=== PATIENT | male | born 1985 | race Caucasian/White ===

== ENCOUNTER 2019-04-21 07:30 | Emergency (ER) | payer MEDICAID, OTHER ==
[~2019-04-21] VITALS: Ht 175.3 cm; Wt 77.1 kg
[~2019-04-21 07:30] MED LIST: HYDR-4226 PO; SULF1TAB35 PO
--- NOTE | 2019-04-21 07:49 | ED Lower Extremity ---
General Chief Complaint: Lower Extremity Stated Complaint: LT ANKLE INJ Source: patient Exam Limitations: no limitations History of Present Illness Date Seen by Provider: Apr 21, 2019 Time Seen by Provider: 07:37 Initial Comments Patient presents to ER by private conveyance with his and chief complaint that yesterday afternoon he stepped out of a vehicle inverted his left foot hurt a popping sensation and was unable to bear weight immediately. He went home and iced his foot drank some beer and is went to sleep. This morning he still can't walk on his having significant swelling. He has not taken any Tylenol or ibuprofen. No previous history of significant injury or surgery to his left ankle. No significant medical history. Allergies and Home Medications Allergies Coded Allergies: No Known Drug Allergies (Unverified , 04/21/19) Patient Home Medication List Home Medication List Reviewed: Yes Review of Systems Constitutional: No chills, No diaphoresis EENTM: No ear discharge, No ear pain Respiratory: No cough, No short of breath Cardiovascular: No chest pain, No edema Gastrointestinal: No abdominal pain, No nausea Past Zfhmtnw-Sdlaob-[place] Hx Patient Social History Alcohol Use: Regular Use Alcohol Beverage of Choice: Beer Recreational Drug Use: No Smoking Status: Current Everyday Smoker Type Used: Cigarettes (1-2 ppd) Physical Exam Vital Signs Vital Signs - First Documented 04/21/19 07:38 Temp 98.0 Pulse 79 Resp 18 B/P (MAP) 113/65 (81) Pulse Ox 98 O2 Delivery Room Air Capillary Refill : Height, Weight, BMI Height: '" Weight: lbs. oz. kg; BMI Method: General Appearance: WD/WN, no apparent distress HEENT: PERRL/EOMI, pharynx normal Cardiovascular: normal peripheral pulses (bilateral dorsal pedal pulses and pos terior tibial pulses palpable 2 out of 4.), regular rate, rhythm Respiratory: no respiratory distress, no accessory muscle use Ankles: right ankle non-tender, right ankle normal inspection, right ankle normal range of motion, right ankle no evidence of injury; left ankle bone tenderness (bimalleolar), left ankle joint effusion, left ankle limited range of motion (secondary to pain), left ankle pain, left ankle soft tissue tenderness, left ankle swelling (moderate) Feet: bilateral foot non-tender, bilateral foot normal inspection, bilateral foot normal range of motion, bilateral foot no evidence of injury Neurologic/Tendon: normal sensation, normal motor functions, normal tendon functions, responds to pain Neurologic/Psychiatric: no motor/sensory deficits, alert, oriented x 3 Skin: normal color, warm/dry Progress/Results/Core Measures Results/Orders My Orders Orders - KESHAWN JUNIOR Ankle 3 View Left (04/21/19 07:42) Vital Signs/I&O 04/21/19 07:38 Temp 98.0 Pulse 79 Resp 18 B/P (MAP) 113/65 (81) Pulse Ox 98 O2 Delivery Room Air Progress Progress Note : Time: 07:46 Progress Note He has declined any NSAIDs at this time. He says it doesn't hurt as long as he does not put weight on it. We'll offer an ice pack and per [employer] ankle rules get a 3 view left ankle. Diagnostic Imaging Diagonstic Imaging: Xray Plain Films/CT/US/NM/MRI: ankle (L) Comments No acute osseous fracture seen. Joint spaces are maintained. Reviewed: Reviewed by Me Departure Impression Primary Impression: Sprain of ankle Disposition: 01 HOME, SELF-CARE Condition: Stable Departure-Patient Inst. Decision time for Depature: 08:00 Referrals: PEGGY BRAR MD (PCP/Family) Primary Care Physician Patient Instructions: Ankle Sprain (DC) Add. Discharge Instructions: Rest the ankle when not necessary to be on it. Apply ice for 20 minutes every 2 hours for the next 2-3 days. Elevate the ankle above the level of your heart to help reduce the swelling and therefore pain. Wear some kind of a compression wrap such as a neoprene sleeve or Jack bandage. You can use ibuprofen 800 mg every 8 hours or 2 Naprosyn/Aleve twice a day for the same effect. Tylenol 1000 mg every 8 hours as also recommended as needed for pain. Use the crutches to stay off your foot. Wear the air splint for the next 1-2 weeks as necessary for support. All discharge instructions reviewed with patient and/or family. Voiced understanding. Work/School Note: Work Release Form Date Seen in the Emergency Department: Apr 21, 2019 Return to Work: Apr 25, 2019 Restrictions: Need Release from Doctor Other Restrictions Listed Below: Minimal weightbearing left foot. Use crutches and splint until 04/28/19. KESHAWN JUNIOR Apr 21, 2019 07:48
--- NOTE | 2019-04-21 08:07 | Diagnostic Imaging Report ---
INDICATION: Left ankle pain. FINDINGS: 3 views of left ankle show soft tissue swelling adjacent to the lateral malleolus. There is no acute fracture or dislocation. IMPRESSION: Soft tissue swelling. No fracture is seen. Dictated by: Dictated on workstation # [id number]
[2019-04-21 08:30] VITALS: BP 111/65
== END 2019-04-21 08:30 | disposition home or self-care (01) ==
LOC: ER FS 07:32
DX: S93.402A Sprain of unspecified ligament of left ankle, initial encounter (principal); F17.210 Nicotine dependence, cigarettes, uncomplicated; X50.1XXA Overexertion from prolonged static or awkward postures, initial encounter
CPT/HCPCS: 73610

== ENCOUNTER 2020-10-20 17:50 | Emergency (ER) | payer MEDICAID, OTHER ==
[~2020-10-20] VITALS: Ht 177 cm; Wt 81.6 kg
--- NOTE | 2020-10-20 17:59 | ED Chest Pain ---
General Stated Complaint: CHEST PAIN Source: patient Exam Limitations: no limitations History of Present Illness Date Seen by Provider: Oct 20, 2020 Time Seen by Provider: 18:00 Initial Comments 34-year-old male presents with chest pain which has been present off-and-on for the past 24 hours. Denies history of heart or lung problem, however does have extensive family history on both mother and father side of heart attacks before the age of 40. 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 He does smoke 2 packs of cigarettes daily. Denies any recent illness, fever or chills or cough. Denies any abdominal pain, back pain, extremity swelling. Allergies and Home Medications Allergies Coded Allergies: No Known Drug Allergies (Unverified , 04/21/19) Home Medications Hydrocodone/Acetaminophen 1 Each Tablet, 1 EACH PO Q6H PRN for PAIN Do not fill unless Bactrim is also filled Prescribed by: DUYEN BOX on 11/13/152207 Sulfamethoxazole/Trimethoprim 1 Each Tablet, 1 EACH PO BID Prescribed by: DUYEN BOX on 11/13/152207 Patient Home Medication List Home Medication List Reviewed: Yes Review of Systems Review of Systems Constitutional: see HPI; No dizziness, No fever, No malaise, No weakness EENTM: No Symptoms Reported Respiratory: Denies Cough, Denies Shortness of Air Cardiovascular: Chest Pain; Denies Edema, Denies Palpitations, Denies Syncope Gastrointestinal: Denies Abdominal Pain, Denies Constipated, Denies Diarrhea, Denies Nausea, Denies Poor Appetite, Denies Vomiting Musculoskeletal: No back pain, No joint pain Skin: No change in color, No rash Psychiatric/Neurological: Denies Headache, Denies Numbness, Denies Paresthesia Past Oxmgwvk-Cxocla-Aykudd Hx Past Med/Social Hx: Reviewed Nursing Past Med/Soc Hx Patient Social History Alcohol Beverage of Choice: Beer Smoking Status: Current Everyday Smoker Type Used: Cigarettes 2nd Hand Smoke Exposure: Yes Recent Hopitalizations: No Seasonal Allergies Seasonal Allergies: No Past Medical History Surgeries: No Respiratory: No Cardiac: No Neurological: No Reproductive Disorders: No Genitourinary: No Gastrointestinal: No Musculoskeletal: No Endocrine: No HEENT: No Cancer: No Psychosocial: No Integumentary: No Blood Disorders: No Physical Exam Vital Signs Vital Signs - First Documented 10/20/20 18:04 Temp 36.1 Pulse 65 Resp 17 B/P (MAP) 123/69 (87) Pulse Ox 99 O2 Delivery Room Air Capillary Refill : Height, Weight, BMI Height: 5'9.00" Weight: 170lbs. 0oz. 77.844292iz; BMI Method:Stated General Appearance: No Apparent Distress, WD/WN HEENT: PERRL/EOMI, Normal ENT Inspection Neck: Full Range of Motion, Non Tender, Supple Respiratory: Chest Non Tender, Lungs Clear, Normal Breath Sounds, No Accessory Muscle Use, No Respiratory Distress Cardiovascular: Regular Rate, Rhythm, No Edema, No Gallop, Normal Peripheral Pulses Gastrointestinal: Non Tender, Soft; No Distended, No Guarding Extremity: Normal Inspection, Non Tender, No Calf Tenderness Neurologic/Psychiatric: Alert, Oriented x3, No Motor/Sensory Deficits, Normal Mood/Affect Skin: Normal Color, Warm/Dry Progress/Results/Core Measures Results/Orders Lab Results Laboratory Tests Test 10/20/20 18:02 Range/Units White Blood Count 9.5 4.3-11.0 10^3/uL Red Blood Count 4.95 4.35-5.85 10^6/uL Hemoglobin 15.2 13.3-17.7 G/DL Hematocrit 45 40-54 % Mean Corpuscular Volume 90 80-99 FL Mean Corpuscular Hemoglobin 31 25-34 PG Mean Corpuscular Hemoglobin Concent 34 32-36 G/DL Red Cell Distribution Width 13.1 10.0-14.5 % Platelet Count 227 130-400 10^3/uL Mean Platelet Volume 11.4 H 7.4-10.4 FL Immature Granulocyte % (Auto) 0 % Neutrophils (%) (Auto) 50 42-75 % Lymphocytes (%) (Auto) 38 12-44 % Monocytes (%) (Auto) 7 0-12 % Eosinophils (%) (Auto) 4 0-10 % Basophils (%) (Auto) 1 0-10 % Neutrophils # (Auto) 4.7 1.8-7.8 X 10^3 Lymphocytes # (Auto) 3.6 1.0-4.0 X 10^3 Monocytes # (Auto) 0.6 0.0-1.0 X 10^3 Eosinophils # (Auto) 0.4 H 0.0-0.3 10^3/uL Basophils # (Auto) 0.1 0.0-0.1 10^3/uL Immature Granulocyte # (Auto) 0.0 0.0-0.1 10^3/uL Sodium Level 139 135-145 MMOL/L Potassium Level 4.0 3.6-5.0 MMOL/L Chloride Level 101 98-107 MMOL/L Carbon Dioxide Level 27 21-32 MMOL/L Anion Gap 11 5-14 MMOL/L Blood Urea Nitrogen 12 7-18 MG/DL Creatinine 1.01 0.60-1.30 MG/DL Estimat Glomerular Filtration Rate > 60 BUN/Creatinine Ratio 12 Glucose Level 108 H 70-105 MG/DL Calcium Level 9.4 8.5-10.1 MG/DL Corrected Calcium 9.1 8.5-10.1 MG/DL Total Bilirubin < 0.2 0.1-1.0 MG/DL Aspartate Amino Transf (AST/SGOT) 20 5-34 U/L Alanine Aminotransferase (ALT/SGPT) 28 0-55 U/L Alkaline Phosphatase 57 40-136 U/L Troponin I < 0.30 <0.30 NG/ML Total Protein 7.0 6.4-8.2 GM/DL Albumin 4.4 3.2-4.5 GM/DL My Orders Orders - ROVENSTINEARMEN DO Ed Iv/Invasive Line Start (10/20/20 17:57) Chest 1 View Ap/Pa Only (10/20/20 17:57) Ekg Tracing (10/20/20 17:57) Cbc With Automated Diff (10/20/20 17:57) Comprehensive Metabolic Panel (10/20/20 17:57) Troponin I Fs (10/20/20 17:57) Aspirin Chewable Tablet (Baby Aspirin Ch (10/20/20 18:15) Medications Given in ED Current Medications Medications Dose Ordered Sig/Blu Route Start Time Stop Time Status Last Admin Dose Admin Aspirin 324 mg ONCE ONCE PO 10/20/20 18:15 10/20/20 18:16 DC 10/20/20 18:14 324 MG Vital Signs/I&O 10/20/20 10/20/20 18:04 18:04 Temp 36.1 Pulse 65 Resp 17 B/P (MAP) 123/69 (87) Pulse Ox 99 O2 Delivery Room Air Initial ECG Impression Date: Oct 20, 2020 Initial ECG Impression Time: 17:58 Initial ECG Rate: 60 Initial ECG Rhythm: Normal Sinus Initial ECG Intervals: Normal Initial ECG Impression: Normal Diagnostic Imaging Diagonstic Imaging: Xray Plain Films/CT/US/NM/MRI: chest Comments INDICATION: Chest pain COMPARISON: None FINDINGS: Single frontal view of the chest demonstrates normal heart size and pulmonary vascularity. The lungs are well aerated and clear. No large pleural effusion or pneumothorax is seen. The visualized osseous structures show no acute abnormalities. IMPRESSION: 1. No acute cardiopulmonary process. Dictated on workstation # [id number] Dict: 10/20/202 Trans: 10/20/20 1825 [facility] [id number] Interpreted by: NILDA SHARP MD Electronically signed by: Departure Impression Primary Impression: Chest pain Qualified Codes: R07.9 - Chest pain, unspecified Disposition: HOME, SELF-CARE Condition: Stable Departure-Patient Inst. Decision time for Depature: 18:40 Referrals: PEGGY BRAR MD (PCP/Family) Primary Care Physician Milagro BEEBE MD Patient Instructions: Chest Pain (DC) Add. Discharge Instructions: Call Dr Beebe's office on Thursday to schedule a stress EKG. They will make an appointment for you and give you instructions in preparation for the study. Scripts Aspirin (Aspirin EC) 81 Mg Tablet. 81 MG PO DAILY, #30 TAB Prov: ARMEN MACHADO DO 10/20/20 ARMEN MACHADO DO Oct 20, 2020 17:59
[2020-10-20 18:10] LABS: WHITE BLOOD COUNT 9.5 10^3/uL (4.3-11.0)
[2020-10-20 18:11] LABS: BASOPHILS % (AUTO) 1 % (0-10); EOSINOPHILS % (AUTO) 4 % (0-10); HEMATOCRIT 45 % (40-54); HEMOGLOBIN 15.2 G/DL (13.3-17.7); LYMPHOCYTES % (AUTO) 38 % (12-44); MEAN CORPUSCULAR HEMOGLOBIN 31 PG (25-34); MEAN CORPUSCULAR HGB CONC 34 G/DL (32-36); MEAN CORPUSCULAR VOLUME 90 FL (80-99); MEAN PLATELET VOLUME 11.4 FL (7.4-10.4); MONOCYTES % (AUTO) 7 % (0-12); NEUTROPHILS # (AUTO) 4.7 X 10^3 (1.8-7.8); NEUTROPHILS % (AUTO) 50 % (42-75); PLATELET COUNT 227 10^3/uL (130-400)
[2020-10-20 18:12] LABS: BASOPHILS # (AUTO) 0.1 10^3/uL (0.0-0.1); EOSINOPHILS # (AUTO) 0.4 10^3/uL (0.0-0.3); LYMPHOCYTES # (AUTO) 3.6 X 10^3 (1.0-4.0); MONOCYTES # (AUTO) 0.6 X 10^3 (0.0-1.0)
[2020-10-20] MEDS ORDERED: ASPIRIN 81 MG CHEW (CHILDREN'S ASA) PO ONE (18:15)
--- NOTE | 2020-10-20 18:26 | Diagnostic Imaging Report ---
INDICATION: Chest pain COMPARISON: None FINDINGS: Single frontal view of the chest demonstrates normal heart size and pulmonary vascularity. The lungs are well aerated and clear. No large pleural effusion or pneumothorax is seen. The visualized osseous structures show no acute abnormalities. IMPRESSION: 1. No acute cardiopulmonary process. Dictated by: Dictated on workstation # [id number]
[2020-10-20 18:32] LABS: CARBON DIOXIDE 27 MMOL/L (21-32); CHLORIDE 101 MMOL/L (98-107); SODIUM 139 MMOL/L (135-145)
[2020-10-20 18:33] LABS: ALANINE AMINOTRANSFERASE 28 U/L (0-55); ALKALINE PHOSPHATASE 57 U/L (40-136); BILIRUBIN,TOTAL < 0.2 MG/DL (0.1-1.0); BUN/CREATININE RATIO 12; CALCIUM 9.4 MG/DL (8.5-10.1); CREATININE SERUM 1.01 MG/DL (0.60-1.30); GFR ESTIMATED > 60; GLUCOSE 108 MG/DL (70-105)
[2020-10-20 18:34] LABS: ALBUMIN 4.4 GM/DL (3.2-4.5)
[2020-10-20] MEDS ORDERED: ASPI-1238 PO (18:41)
[2020-10-20 18:46] VITALS: BP 109/70
== END 2020-10-20 18:47 | disposition home or self-care (01) ==
LOC: EDUNIT# 17:50 → ER FS 17:53
DX: R07.9 Chest pain, unspecified (principal); F17.210 Nicotine dependence, cigarettes, uncomplicated
CPT/HCPCS: 36415; 71045; 80053; 84484; 85025; 93005

== ENCOUNTER 2022-06-18 11:41 | Emergency (ER) | payer OTHER ==
[~2022-06-18] VITALS: Ht 177.8 cm; Wt 81.6 kg
[~2022-06-18 11:41] MED LIST changes: +ASPI-1238 PO; -SULF1TAB35 PO; +SULF1TAB38 PO
[2022-06-18 12:30] VITALS: BP 125/80
--- NOTE | 2022-06-18 12:42 | ED EENT ---
History of Present Illness General Chief Complaint: Oral/Throat Problems Stated Complaint: SORE THROAT/SWELLING Source: patient Exam Limitations: no limitations History of Present Illness Date Seen by Provider: Jun 18, 2022 Time Seen by Provider: 12:39 Initial Comments Patient is a 36-year-old male who presents ED with throat pain, throat swelling. Symptoms started yesterday. Noted some redness and swelling to the back part of his throat. He states he is able to eat and drink but reports difficulty and pain. States he is tolerating secretions. Denies of any neck swelling, shortness of breath or cough. Reports marijuana use without other drug use. Denies fever, vomiting, diarrhea, headache, dizziness. Denies taking medication at home. History of strep throat when he was younger Allergies and Home Medications Allergies Coded Allergies: No Known Drug Allergies (Unverified , 04/21/19) Patient Home Medication List Home Medication List Reviewed: Yes Aspirin (Aspirin EC) 81 Mg Tablet.dr, 81 MG PO DAILY Prescribed by: ARMEN MACHADO on 10/20/20 184 Hydrocodone/Acetaminophen (Hydrocodone/Acetaminophen 5 MG/325 MG TAB) 1 Each Tablet, 1 EACH PO Q6H PRN for PAIN Prescribed by: DUYEN BOX on 11/13/152207 Sulfamethoxazole/Trimethoprim (Bactrim Ds Tablet) 1 Each Tablet, 1 EACH PO BID Prescribed by: DUYEN BOX on 11/13/152207 Review of Systems Review of Systems Constitutional: No chills, No diaphoresis, No malaise, No weakness Eyes: Denies Blurred Vision, Denies Decreased Acuity Ears: Denies Dizziness, Denies Pain Nose: denies clots, denies congestion, denies bloody discharge, denies clear discharge, denies previous injury Mouth: denies clots Throat: pain, swelling; denies neck stiffness; painful swallowing; denies difficulty with fluids Respiratory: No cough, No dyspnea on exertion Cardiovascular: No chest pain Gastrointestinal: No abdominal pain, No diarrhea, No nausea, No vomiting Musculoskeletal: No joint pain Skin: No change in color, No change in hair/nails All Other Systems Reviewed Negative Unless Noted: Yes Past Pmkwpiz-Ptjhtr-Fqftbn Hx Seasonal Allergies Seasonal Allergies: No Past Medical History Surgeries: Yes Orthopedic Respiratory: No Cardiac: No Neurological: No Reproductive Disorders: No Genitourinary: No Gastrointestinal: No Musculoskeletal: No Endocrine: No HEENT: No Cancer: No Psychosocial: No Integumentary: No Blood Disorders: No Physical Exam Vital Signs Vital Signs - First Documented 06/18/22 12:30 Temp 37.1 Pulse 78 Resp 18 B/P (MAP) 125/80 (95) Pulse Ox 99 O2 Delivery Room Air Height, Weight, BMI Height: 5'9.00" Weight: 170lbs. 0oz. 77.744301xd; 26.00 BMI Method:Stated General Appearance: WD/WN, no apparent distress Eyes: bilateral eye normal inspection, bilateral eye PERRL, bilateral eye EOMI Ears: bilateral ear auricle normal, bilateral ear canal normal, bilateral ear TM normal Nose: normal inspection Mouth/Throat: other (Oropharynx with erythema, swelling. No uvula deviation suggesting tonsillar abscess. Bilateral submandibular lymphadenopathy. No stridor. 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, no motor/sensory deficits, alert, normal mood/affect, oriented x 3 Skin: normal color, warm/dry Progress/Results/Core Measures Results/Orders Lab Results Laboratory Tests Test 06/18/22 12:38 Range/Units Group A Streptococcus Screen POSITIVE H NEGATIVE My Orders Orders - SANTOS MARTINEZ Rapid Strep A Screen (06/18/22 12:01) Dexamethasone Oral Soln (Ed) (Decadron I (06/18/22 12:38) Ibuprofen Tablet (Motrin Tablet) (06/18/22 12:45) Penicillin G Benzathine Inject (Bicillin (06/18/22 13:15) Medications Given in ED Current Medications Medications Dose Ordered Sig/Blu Route Start Time Stop Time Status Last Admin Dose Admin Ibuprofen 800 mg ONCE ONCE PO 06/18/22 12:45 06/18/22 12:46 DC 06/18/22 13:03 800 MG Vital Signs/I&O 06/18/22 12:30 Temp 37.1 Pulse 78 Resp 18 B/P (MAP) 125/80 (95) Pulse Ox 99 O2 Delivery Room Air Departure Communication (PCP) Patient with strep pharyngitis. Tolerating secretions. No stridor. No evidence of uvula deviation suggesting tonsillar abscess. Patient was requesting IM penicillin which was provided 1 dose. Was given oral Decadron and ibuprofen. Discussed anti-inflammatories, cool fluids, ice cream to help with pain. Discussed cephcol and Chloraseptic spray to help with sore throat. If any worsening symptoms return back to ED for further evaluation. Impression Primary Impression: Strep pharyngitis Disposition: HOME, SELF-CARE Condition: Stable Departure-Patient Inst. Decision time for Depature: 13:08 Referrals: [facility] [place] [facility],LOCAL PHYSICIAN (PCP) Primary Care Physician Patient Instructions: Strep Throat ED Add. Discharge Instructions: Recommend cepahcol drops or Chloraseptic spray to help with pain. Recommend eating something cool or cold to help with the pain. If any worsening symptoms such as unable to tolerate secretions to return back to ED. continue with Tylenol ibuprofen at home All discharge instructions reviewed with patient and/or family. Voiced understanding. Work/School Note: Work Release Form Date Seen in the Emergency Department: Jun 18, 2022 Return to Work: Jun 21, 2022 SANTOS MARTINEZ Jun 18, 2022 12:42
[2022-06-18] MEDS ORDERED: IBUPROFEN 800 MG (MOTRIN) TAB PO ONE (12:45)
[2022-06-18] MEDS ORDERED: PEN G BENZ (BICILLIN LA) 1.2 M UN/2 ML SYR IM ONE (13:15)
== END 2022-06-18 13:16 | disposition home or self-care (01) ==
LOC: EDUNIT# 11:41 → ER 11:44
DX: J02.0 Streptococcal pharyngitis (principal); Z28.310 Unvaccinated for COVID-19
CPT/HCPCS: 87430; 99284

== ENCOUNTER 2022-09-06 17:21 | Emergency (ER) | payer OTHER ==
[~2022-09-06] VITALS: Ht 177.8 cm; Wt 79.4 kg
[2022-09-06 17:27] VITALS: BP 118/64
--- NOTE | 2022-09-06 17:28 | ED Back Pain ---
General Chief Complaint: Back Problems Stated Complaint: MAXINE FLANK PAIN History of Present Illness Date Seen by Provider: Sep 06, 2022 Time Seen by Provider: 17:28 Initial Comments 36-year-old male is here with complaints of dysuria, frequency of urination, urgency, bilateral flank pain for the past 1 week, which has been worsening. Patient states he drinks water but has not been drinking much over the past couple of days. Denies fever, nausea and vomiting, diarrhea, abdominal pain. Patient states that the pain is a dull aching pain that is constant. Allergies and Home Medications Allergies Coded Allergies: No Known Drug Allergies (Unverified , 04/21/19) Patient Home Medication List Home Medication List Reviewed: Yes Aspirin (Aspirin EC) 81 Mg Tablet., 81 MG PO DAILY Prescribed by: ARMEN MACHADO on 10/20/201840 Hydrocodone/Acetaminophen (Hydrocodone/Acetaminophen 5 MG/325 MG TAB) 1 Each Tablet, 1 EACH PO Q6H PRN for PAIN Prescribed by: DUYEN BOX on 11/13/152207 Sulfamethoxazole/Trimethoprim (Bactrim Ds Tablet) 1 Each Tablet, 1 EACH PO BID Prescribed by: DUYEN BOX on 11/13/152207 Review of Systems Constitutional: no symptoms reported EENTM: no symptoms reported Respiratory: no symptoms reported Cardiovascular: no symptoms reported Gastrointestinal: no symptoms reported, see HPI Genitourinary: dysuria, frequency Musculoskeletal: no symptoms reported Skin: no symptoms reported Psychiatric/Neurological: No Symptoms Reported Past Evvdrug-Rbfcnq-Qojzvh Hx Immunizations Up To Date First/Initial COVID19 Vaccinat: DECLINED Seasonal Allergies Seasonal Allergies: No Past Medical History Surgeries: Yes Orthopedic Respiratory: No Cardiac: No Neurological: No Reproductive Disorders: No Genitourinary: No Gastrointestinal: No Musculoskeletal: No Endocrine: No HEENT: No Cancer: No Psychosocial: No Integumentary: No Blood Disorders: No Physical Exam Vital Signs Vital Signs - First Documented 09/06/22 17:27 Temp 37.0 Pulse 83 Resp 16 B/P (MAP) 118/64 (82) Pulse Ox 96 O2 Delivery Room Air Capillary Refill : Height, Weight, BMI Height: 5'9.00" Weight: 170lbs. 0oz. 77.950826vo; 25.00 BMI Method:Stated General Appearance: No Apparent Distress, WD/WN HEENT: PERRL/EOMI Neck: Full Range of Motion Cardiovascular: Regular Rate, Rhythm Respiratory: Lungs Clear Gastrointestinal: Normal Bowel Sounds, Non Tender, Soft Back: Normal Inspection, CVA Tenderness (L), CVA Tenderness (R) Extremity: Normal Range of Motion Neurologic/Psychiatric: Alert, Oriented x3 Skin: Normal Color Progress/Results/Core Measures Results/Orders Lab Results Laboratory Tests Test 09/06/22 17:45 Range/Units Urine Color YELLOW Urine Clarity CLOUDY Urine pH 8.0 5-9 Urine Specific [place] 1.020 1.016-1.022 Urine Protein 2+ H NEGATIVE Urine Glucose (UA) NEGATIVE NEGATIVE Urine Ketones NEGATIVE NEGATIVE Urine Nitrite NEGATIVE NEGATIVE Urine Bilirubin NEGATIVE NEGATIVE Urine Urobilinogen 1.0 < = 1.0 MG/DL Urine Leukocyte Esterase 2+ H NEGATIVE Urine RBC (Auto) 3+ H NEGATIVE Urine RBC >100 H /HPF Urine WBC >100 H /HPF Urine Crystals NONE /LPF Urine Bacteria LARGE H /HPF Urine Casts NONE /LPF Urine Mucus NEGATIVE /LPF Urine Culture Indicated YES My Orders Orders - RAUL MAURO MD Ua Culture If Indicated (09/06/22 17:42) Urine Culture (09/06/22 17:45) Ceftriaxone (Rocephin) (09/06/22 18:45) Lidocaine 1% Inj 20 Ml (Xylocaine 1% Inj (09/06/22 18:45) Medications Given in ED Current Medications Medications Dose Ordered Sig/Blu Route Start Time Stop Time Status Last Admin Dose Admin Ceftriaxone Sodium 1,000 mg ONCE ONCE IM 09/06/22 18:45 09/06/22 18:46 DC 09/06/22 18:49 1,000 MG Lidocaine HCl 2.1 ml ONCE ONCE INJ 09/06/22 18:45 09/06/22 18:46 DC 09/06/22 18:49 2.1 ML Vital Signs/I&O 09/06/22 17:27 Temp 37.0 Pulse 83 Resp 16 B/P (MAP) 118/64 (82) Pulse Ox 96 O2 Delivery Room Air Progress Progress Note : Progress Note 1. ACUTE PYELONEPHRITIS: - UA is positive for LE, WBC, RBC, bacteria - Ceftriaxone 1gm im STAT - Toradol 30mg im STAT - Prescription for Cefpodoxime 100mg bid for 14 days - Adequate hydration advised - Follow up with PCP in 7 to 10 days -The patient was seen in the ED, and treated appropriately to presentation at a specific point in time. Patient is informed that there is a possibility that disease and illness can evolve and change in acuity rapidly or slowly after patient is discharged from the ER. Precautionary advice given to the patient for immediate return to ER if symptoms worsen or do not resolve, and to seek emergency care sooner rather than later. Pt also advised on the importance of PC P follow up and compliance with management and follow up plan with PCP and/or specialist, as this is part of the management plan. Pt verbally expressed understanding. Departure Impression Primary Impression: Acute pyelonephritis Disposition: HOME, SELF-CARE Condition: Stable Departure-Patient Inst. Referrals: NO,LOCAL PHYSICIAN (PCP/Family) Primary Care Physician Add. Discharge Instructions: - Prescription for Cefpodoxime 100mg bid for 14 days - Adequate hydration advised - Follow up with PCP in 7 to 10 days All discharge instructions reviewed with patient and/or family. Voiced understanding. Scripts Cefpodoxime Proxetil (Cefpodoxime Proxetil) 100 Mg Tablet 100 MG PO BID for 14 Days, #28 TAB Prov: RAUL MAURO MD 09/06/22 RAUL MAURO MD Sep 06, 2022 17:28
[2022-09-06 17:52] LABS: BILIRUBIN,URINE NEGATIVE (NEGATIVE); COLOR,URINE YELLOW; GLUCOSE, URINE (UA) NEGATIVE (NEGATIVE); KETONES,URINE NEGATIVE (NEGATIVE); LEUKOCYTE ESTERASE ,URINE 2+ (NEGATIVE); NITRITE,URINE NEGATIVE (NEGATIVE); PROTEIN,URINE 2+ (NEGATIVE)
[2022-09-06 17:53] LABS: CLARITY,URINE CLOUDY
[2022-09-06 17:56] LABS: BACTERIA,URINE LARGE /HPF; RBC,URINE >100 /HPF; WBC,URINE >100 /HPF
[2022-09-06] MEDS ORDERED: LIDOCAINE 1% INJ 20 ML VIAL INJ ONE (18:45)
[2022-09-06] MEDS ORDERED: cefTRIAXone 1,000 MG VIAL IM ONE (18:45)
[2022-09-06] MEDS ORDERED: CEFP100T2 PO (19:00)
[2022-09-06] MEDS ORDERED: KETOROLAC 30 MG/ML VIAL IVP ONE (19:00)
== END 2022-09-06 19:12 | disposition home or self-care (01) ==
LOC: EDUNIT# 17:21 → ER FS 17:22
DX: N10 Acute pyelonephritis (principal); Z28.310 Unvaccinated for COVID-19
CPT/HCPCS: 81000; 87077; 87088; 87186; 99284

== ENCOUNTER 2022-11-18 15:53 | Emergency (ER) | payer SELFPAY ==
[~2022-11-18] VITALS: Ht 177 cm; Wt 90.0 kg
[~2022-11-18 15:53] MED LIST changes: +CEFP100T2 PO
[2022-11-18 16:10] VITALS: BP 119/74
[2022-11-18 16:27] LABS: BILIRUBIN,URINE NEGATIVE (NEGATIVE); CLARITY,URINE CLOUDY; COLOR,URINE YELLOW; GLUCOSE, URINE (UA) NEGATIVE (NEGATIVE); KETONES,URINE TRACE (NEGATIVE); LEUKOCYTE ESTERASE ,URINE 2+ (NEGATIVE); NITRITE,URINE POSITIVE (NEGATIVE); PH,URINE 6.5 (5-9); PROTEIN,URINE 2+ (NEGATIVE)
[2022-11-18] MEDS ORDERED: cefTRIAXone 250 MG/2.5 ML ML IM ONE (16:30)
[2022-11-18] MEDS ORDERED: AZITHROMYCIN 250 MG TAB (ZITHROMAX) PO ONE (16:30)
[2022-11-18 16:34] LABS: BACTERIA,URINE LARGE /HPF; RBC,URINE 25-50 /HPF; WBC,URINE >100 /HPF
--- NOTE | 2022-11-18 16:36 | ED GU-Female ---
General Chief Complaint: - Reproductive Stated Complaint: UTI SYMPTOMS Nursing Triage Note: Patient has presented to ER with cc of pain with urination, urinary frequency and urgency for the last 3 days. He reports that about 6 weeks ago he had a UTI and he tool some of the antibiotics but lost the bottle and didn't finish his antibiotics. He also states that he has recently had a new sexual partner. He is concnered about have a reoccurent UTI. Source: patient Exam Limitations: no limitations History of Present Illness Date Seen by Provider: Nov 18, 2022 Time Seen by Provider: 16:00 Initial Comments Patient is is a 36-year-old male who presents with urinary frequency urgency and dysuria. He denies testicular pain tenderness swelling or redness. No penile discharge. He has had symptoms for the past 3 days. Patient was seen here 6 weeks ago diagnosed with urinary tract infection. He did not complete his full course of antibiotics. Patient is circumcised, nondiabetic and has recently acquired new sexual partners. He is concerned about possible STD exposure. Timing/Duration: just prior to arrival, other Severity/Quality: other Location: other Radiation: other Activities at Onset: other Sexual [place] History: other Modifying Factors: Improves With Other Associated Symptoms: other Allergies and Home Medications Allergies Coded Allergies: No Known Drug Allergies (Unverified , 04/21/19) Patient Home Medication List Home Medication List Reviewed: Yes Aspirin (Aspirin EC) 81 Mg Tablet.dr, 81 MG PO DAILY Prescribed by: ARMEN MACHADO on 10/20/20 184 Cefpodoxime Proxetil (Cefpodoxime Proxetil) 100 Mg Tablet, 100 MG PO BID Prescribed by: RAUL MAURO MD on 09/06/22 190 Hydrocodone/Acetaminophen (Hydrocodone/Acetaminophen 5 MG/325 MG TAB) 1 Each Tablet, 1 EACH PO Q6H PRN for PAIN Prescribed by: DUYEN BOX on 11/13/152207 Sulfamethoxazole/Trimethoprim (Bactrim Ds Tablet) 1 Each Tablet, 1 EACH PO BID Prescribed by: DUYEN BOX on 11/13/152207 Review of Systems Review of Systems Constitutional: see HPI EENTM: see HPI Respiratory: see HPI Cardiovascular: see HPI Gastrointestinal: see HPI Genitourinary: see HPI Musculoskeletal: see HPI Skin: see HPI Endocrine: See HPI Hematologic/Lymphatic: See HPI All Other Systemes Reviewed Negative Unless Noted: No Past [id number]-[id number] Hx Patient Social History Tobacco Use?: Yes Tobacco type used: Cigarettes Smoking Status: Current Everyday Smoker Substance use?: Yes Substance type: Marijuana Substance frequency: Several times a month Alcohol Use?: Yes Alcohol type: Hard Liquor Alcohol Frequency: Several times a month Immunizations Up To Date First/Initial COVID19 Vaccinat: DECLINED Second COVID19 Vaccination Gareth: DECLINED Third COVID19 Vaccination Date: DECLINED Seasonal Allergies Seasonal Allergies: No Past Medical History Surgeries: Yes Orthopedic Respiratory: No Cardiac: No Neurological: No Reproductive Disorders: No Genitourinary: No Gastrointestinal: No Musculoskeletal: No Endocrine: No HEENT: No Cancer: No Psychosocial: No Integumentary: No Blood Disorders: No Physical Exam Vital Signs Vital Signs - First Documented 11/18/22 16:10 Temp 36.8 Pulse 93 B/P (MAP) 119/74 (89) Pulse Ox 97 O2 Delivery Room Air Capillary Refill : Height, Weight, BMI Height: 5'9.00" Weight: 170lbs. 0oz. [id number]; 28.00 BMI Method:Stated General Appearance: WD/WN HEENT: PERRL/EOMI Cardiovascular: regular rate, rhythm Respiratory: lungs clear Neurologic/Psychiatric: no motor/sensory deficits, alert, oriented x 3 Skin: normal color Focused Exam Sepsis Stage: Ruled Out Progress/Results/Core Measures Suspected Sepsis SIRS Temperature: Pulse: 93 Respiratory Rate: Blood Pressure 119 /74 Mean: 89 Results/Orders Lab Results Laboratory Tests Test 11/18/22 16:00 Range/Units My Orders Orders - GLORIA DINERO DO Ua Culture If Indicated (11/18/22 16:12) Neis Fernando Dna Urine Test (11/18/22 16:12) Chlamydia Trachomatis Urine (11/18/22 16:12) Ceftriaxone (Rocephin) (11/18/22 16:30) Azithromycin Tablet (Zithromax Tablet) (11/18/22 16:30) Vital Signs/I&O 11/18/22 16:10 Temp 36.8 Pulse 93 B/P (MAP) 119/74 (89) Pulse Ox 97 O2 Delivery Room Air Capillary Refill : Blood Pressure Mean: 89 Departure Communication (Admissions) Patient with recurrent urinary tract infections in the setting of STD exposure. Empiric antibiotics given, GC chlamydia test obtained and pending. Recommendations are safe sexual partner practices with PCP and [facility] department follow-up. Return precautions reviewed. Patient verbalized understanding agreement discharge instructions prior to departure. Return precautions reviewed. Impression Primary Impression: STD exposure Additional Impression: Urethritis Disposition: HOME, SELF-CARE Condition: Stable Departure-Patient Inst. Decision time for Depature: 16:36 Referrals: NO,LOCAL PHYSICIAN (PCP/Family) Primary Care Physician Patient Instructions: Sexually-Transmitted Diseases Add. Discharge Instructions: You were evaluated in the emergency department for urinary frequency urgency and burning concerning for urinary tract infection with concern for STD exposure. Please increase fluids take antibiotics as directed and follow safe sexual practices. Follow-up with [facility] department and PCP. Meantime, if you develop new or worsening symptoms return to the ED. All discharge instructions reviewed with patient and/or family. Voiced understanding. Scripts Doxycycline Hyclate (Doxycycline Hyclate) 100 Mg Tablet 100 MG PO BID, #14 TAB 0 Refills Prov: GLORIA DINERO DO 11/18/22 GLORIA DINERO DO Nov 18, 2022 16:36
[2022-11-18] MEDS ORDERED: DOXY100T2 PO (16:38)
[2022-11-18] MEDS ORDERED: LIDOCAINE 1% INJ 20 ML VIAL INJ ONE (16:45)
[2022-11-18] MEDS ORDERED: LIDOCAINE 1% INJ 20 ML VIAL ONE (16:45)
[2022-11-18] MEDS ORDERED: cefTRIAXone 500 MG/5 ML ML ONE (16:49)
[2022-11-18] MEDS ORDERED: cefTRIAXone 250 MG/2.5 ML ML ONE (16:51)
== END 2022-11-18 16:55 | disposition home or self-care (01) ==
LOC: EDUNIT# 15:53 → ER FS 15:55
DX: N34.2 Other urethritis (principal); Z20.2 Contact with and (suspected) exposure to infections with a predominantly sexual mode of transmission; F17.210 Nicotine dependence, cigarettes, uncomplicated; Z28.310 Unvaccinated for COVID-19
CPT/HCPCS: 36415; 81000; 87088; 87491; 87591; 99282